=== PATIENT | male | born 1975 | race African-American/Black ===

== ENCOUNTER 2017-03-30 21:47 | Emergency (ER) | payer MEDICAID | END 2017-03-30 22:50 | disposition left against medical advice (07) | LOC: ER 22:45 | DX: Z53.21 Procedure and treatment not carried out due to patient leaving prior to being seen by health care provider (principal) ==

== ENCOUNTER 2017-03-31 00:39 | Emergency (ER) | payer MEDICAID ==
[~2017-03-31] VITALS: Ht 185.4 cm; Wt 79.5 kg
[2017-03-31 00:45] VITALS: BP 132/91
== END 2017-03-31 02:16 | disposition left against medical advice (07) ==
LOC: ER 00:39
DX: M25.551 Pain in right hip (principal); Z53.21 Procedure and treatment not carried out due to patient leaving prior to being seen by health care provider